=== PATIENT | female | born 1980 | race Caucasian/White ===

== ENCOUNTER 2022-02-23 06:55 | Inpatient (IN) | payer SELFPAY, OTHER ==
[2022-02-23] VITALS (20 sets, daily range): BP systolic 94–117; BP diastolic 51–78; PULSE 79–123; RESP 16–18; TEMP 36.2–36.9; O2SAT 95–100; BMI 26.5
[2022-02-23] MEDS: LACTATED RINGERS 500 ML 999 ML IV (07:06)
[2022-02-23 07:25] LABS: Absolute Lymphocyte Count 1.47 X10^3/uL (0.83-4.51); Absolute Neutrophil Count 8.3 X10^3/uL (2.0-7.7); Basophil# 0.04 X10^3/uL; Basophil% 0.4 % (0-1); Eosinophil# 0.03 X10^3/uL; Eosinophils% 0.3 % (0-5); Hematocrit 37.5 % (37-47); Hemoglobin 12.5 g/dL (12.0-15.0); Lymphocyte # 1.47 X10^3/ul (0.83-4.51); Mean Corp Hgb Conc 33.3 g/dL (32-36); Mean Corpuscular Hgb 32.3 pg (27.0-32.0); Mean Corpuscular Volume 96.9 fL (81-99); Mean Platelet Vol. 8.9 fl (6.2-12.0); Monocyte# 0.57 X10^3/uL; Monocyte% 5.4 % (0-10); NRBC Flagged by Analyzer 0 % (0-5); Neutrophil # 8.29 X10^3/uL (2.7-7.7); Neutrophil % 78.9 % (47-70); Platelet Count 247 K/mm3 (150-450); RBC Distribution Width CV 13.2 % (11.6-14.6); RBC Distribution Width SD 47.1 fl (35.1-43.9); Red Blood Count 3.87 M/mm3 (4.2-5.4); White Blood Count 10.5 K/mm3 (4.4-11.0)
[2022-02-23 07:42] LABS: Partial Thromboplast Time 24.9 Seconds (24.1-36.2); Prothrombin Time (Protime)PT. 12.7 SECONDS (11.7-14.9)
[2022-02-23 08:24] LABS: Rubella IgG Reactive (Nonreactive); Syphilis Antibodies Non-reactive
[2022-02-23] MEDS: Oxytocin 30 units/NS 500 ml 30 UNITS/500 ML IV.SOLN 167 UNITS IV (08:29)
[2022-02-23 08:41] LABS: HIV - WCH Non-Reactive (Nonreactive); Hepatitis B Surface Antigen Non-Reactive (Nonreactive); Hepatitis C Antibody Non-Reactive (Nonreactive)
--- NOTE | 2022-02-23 09:51 | OP.PCM_ITS ---
Problems Associated Problem List Diagnoses (1) labor in third trimester: (2) Premature rupture of membranes: (3) Elderly multigravida: (4) No care in current : (5) Placental abruption in third trimester: (6) Non-reassuring electronic monitoring tracing: Report of Operation Date of Procedure: 02/23/22 Pre-Operative Diagnosis: 1. 35-week intrauterine by dates only with nonreassuring heart tracing 2. premature rupture of membranes 3. Premature labor 4. Placental abruption 5. Inadequate care 6. Elderly multigravida 7. Oligohydramnios Post-Operative Diagnosis: Same with finding of small gestational age fetus with gross abnormalities Surgery/Procedure Performed:: Primary low transverse section Via Pfannenstiel Description of Surgical Findings:: Male infant in cephalic presentation with a very soft and relatively large head. Short limbs. Oligohydramnios. Surgeon: Kalli Lazaro user experience manager: Sue Kunz Type of Anesthesia: General/Regional Anesthesiologist: Renard Herrera Drains: Maurer catheter Estimated Blood Loss (mL): 300 mL Description of Procedure: In the operating room the patient was emergently prepped in the dorsal supine position with a leftward tilt and once general anesthesia was adequate a Pfannenstiel incision was made and a bladder blade and moist laparotomy sponges placed in the paracolic gutters. A transverse incision was made in the lower uterine segment and my hand was reached in 4 very soft squishy head and the rest of the was delivered with fundal pressure without difficulty. proportions were obviously abnormal. The cord was clamped and cut and the infant handed off to the waiting lead software qa engineer and nurses. IV Pitocin was given and the uterus contracted down and the placenta was delivered manually and the placenta cleared of clots and debris. The uterus contracted down well. The uterus was repaired in 2 layers using a running layer of #0 Vicryl and an imbricating layer of #1 Monocryl to obtain excellent hemostasis. The uterine adnexa were inspected and found to be normal and the paracolic gutters were cleared of clots and debris. The parietal peritoneum was repaired with a running layer of #3-0 Vicryl and the rectus muscles were inspected for hemostasis which was good. The fascia was closed with a running layer of #0 Vicryl and 2 segments and the subcutaneous tissue irrigated. Hemostasis was good. Interrupted sutures of #3-0 Vicryl were placed before the skin was closed with a subcuticular layer of #4-0 Vicryl and ABD dressing was applied. Complications None noted Admit VTE Documentation VTE Present on Admission: No VTE Mechan Device Prophylaxis: SCD's VTE Pharm Prophylaxis ordered?: No
--- NOTE | 2022-02-23 10:03 | PCM.HP.OB ---
HPI - General General Date of Admission: 02/23/22 Chief Complaint: contractions. HPI Narrative CRISTIN VILLALOBOS, is a 41 F who presents with contractions after a call from her inlayer silver Madonna Easley who called into labor and delivery. Apparently when she called the patient was having contractions but no rupture of membranes or bleeding. On their arrival per the history from the patient and her her membranes ruptured as they came out of the vehicle with several clots following approximately 7 cm in diameter. Maternal Data Information Final CHASITY: 04/02/22 Final CHASITY Source: LMP Gestational age: 37 Doctor Who Attended Delivery[facility] Allergy/AdvReac Type Severity Reaction Status Date / Time No Known Allergies Allergy Verified 02/23/22 07:22 no surgical history Social History (Updated 02/23/22 @ 10:[address] Kalli Lazaro MD) household members: family housing: house number of children: 4 Smoking Status: Never smoker substance use type: does not use History 9 Elective abortions 0 Hx Para 5 Spontaneous abortions 2 Hx # Term Pregnancies 4 Ectopic pregnancies 0 Hx # Pregnancies 1 Multiple births 0 # of living children 4 Addt'l History: Patient had one 35-week delivery at home which resulted in a stillbirth and of note was that the had very little bone structure to its head and dysmorphic features. All other deliveries were full-term and uneventful. NST FHR Rate Baby A Baseline: 140s Variability:: Moderate Accelerations:: 15 x 15 Decelerations:: Variable NST Reactive:: Appropriate for gestational age FHR Category:: Category I Uterine Activity:: Irregular. Assessment Assessment Detail: Initial heart rate was category 1 and in fact IV Pitocin was started for a few minutes in hopes of spontaneous delivery with a diagnosis of multiparity and an abruption with a cervix 5 cm dilated and a history of fast labors. Before she could even develop contractions the heart rate deteriorated with a prolonged bradycardia into the 80s not responding to fluids and positional changes and a decision was made for an emergency section. ROS ROS Narrative All negative Vital Signs Vital Signs Vital Signs: 02/23/22 07:09 02/23/22 07:09 02/23/22 07:14 Temperature Temperature Source Pulse Rate 121 H 110 H Respiratory Rate Respiratory Pattern Blood Pressure Blood Pressure Mean Blood Pressure Source Blood Pressure Position Blood Pressure Location Baseline BP Pulse Ox 99 Oxygen Delivery Method 02/23/22 07:14 02/23/22 07:19 02/23/22 07:19 Temperature Temperature Source Pulse Rate 118 H Respiratory Rate Respiratory Pattern Blood Pressure Blood Pressure Mean Blood Pressure Source Blood Pressure Position Blood Pressure Location Baseline BP Pulse Ox 99 99 Oxygen Delivery Method 02/23/22 07:24 02/23/22 07:24 02/23/22 08:30 Temperature 97.2 F L Temperature Source Temporal Pulse Rate 123 H 83 Respiratory Rate 16 Respiratory Pattern Normal Blood Pressure 105/72 Blood Pressure Mean 83 Blood Pressure Source Monitor Blood Pressure Position Semi-Fowlers Blood Pressure Location Left Arm Baseline BP 117/78 Pulse Ox 99 99 Oxygen Delivery Method Room Air 02/23/22 08:40 02/23/22 08:55 02/23/22 09:10 Temperature 97.2 F L 97.2 F L 98.0 F Temperature Source Temporal Temporal Temporal Pulse Rate 82 83 86 Respiratory Rate 16 16 16 Respiratory Pattern Blood Pressure 105/72 116/75 102/64 Blood Pressure Mean 83 88 76 Blood Pressure Source Monitor Monitor Monitor Blood Pressure Position Semi-Fowlers Semi-Fowlers Blood Pressure Location Left Arm Left Arm Baseline BP 117/78 117/78 117/78 Pulse Ox 95 98 100 Oxygen Delivery Method Room Air Room Air Room Air 02/23/22 09:25 02/23/22 09:40 Temperature 98.0 F 98.0 F Temperature Source Temporal Temporal Pulse Rate 79 85 Respiratory Rate 16 16 Respiratory Pattern Blood Pressure 104/67 94/58 L Blood Pressure Mean 79 70 Blood Pressure Source Monitor Monitor Blood Pressure Position Semi-Fowlers Semi-Fowlers Blood Pressure Location Left Arm Left Arm Baseline BP 117/78 117/78 Pulse Ox 100 100 Oxygen Delivery Method Room Air Room Air Weight Weight: 150 lb Body Mass Index (BMI) 26.5 Physical Exam Narrative Bedside scan was carried out confirming a fundal placenta and a single fetus in cephalic presentation and an absence of amniotic fluid. A search for a femur length to attempt to obtain some idea of gestational age was unsuccessful presumably due to the oligohydramnios. Of note was that the scalp appeared thin. Const alert, oriented x3 and no apparent distress General Appearance: cooperative, comfortable and well kempt Orientation / Consciousness: awake HEENT normocephalic Eyes PERRL and EOMs intact bilaterally General Eye: normal appearance of both eyes Neck full ROM General: normal visual inspection Lymph Lymphatic: no lymphadenopathy noted Chest inspection of chest normal Resp normal respiratory effort and normal air movement Effort and Inspection: able to speak in complete sentences Cardio Cardio Narrative: Exam deferred no CVA tenderness Speculum Exam - Cervix: cervical os open Manual OB Exam: estimated gestational size, presentation cephalic, dilated, effaced For and station high Uterus Palpation: uterus fundus soft Amniotic Fluid: bloody amniotic fluid and ROM+plus Extremity normal to inspection, no calf tenderness and no pedal edema Skin no rashes or lesions noted Neuro Speech: speech normal Psych mental status grossly normal Labs Labs Labs: Blood Type A POSITIVE Antibody Screen NEGATIVE Hct 37.5 % (37-47) Hgb 12.5 g/dL (12.0-15.0) Syphilis Total Ab Non-reactive Rubella IgG Antibody Reactive (Nonreactive) Hep Bs Antigen Non-Reactive (Nonreactive) HIV 1&2 Antibody Non-Reactive (Nonreactive) Patient had no labs drawn this Assessment & Plan (1) Non-reassuring electronic monitoring tracing: (2) Premature rupture of membranes: (3) labor in third trimester: COMMENT: Estimated gestational age of 35 weeks by maternal history only (4) Placental abruption in third trimester: (5) No care in current : (6) Elderly multigravida: PLAN: Plan Initial plan was to attempt vaginal delivery with labor augmentation however the heart rate deteriorated very significantly leading to a decision to perform an emergency section. Respiratory and the leather tanner were notified. Procedure Criteria Type of Procedure Procedure Type: Elective Elective Risks - COVID COVID Risk Discussion: The surgeon/proceduralist and patient have discussed in detail the risk of exposure to and/or potential harm posed by the COVID-19 virus with having a surgery/procedure at this time versus the risk of delaying the surgery/procedure. It is not possible to know either the risk of delaying the surgery or procedure or chance of getting an infection with perfect accuracy, but a joint decision was made between the patient and the surgeon/proceduralist to proceed at this time with the scheduled surgery/procedure as indicated on the consent form.
[2022-02-23] MEDS: Lactated Ringers 1,000 ML 250 ML IV (10:17)
[2022-02-23] MEDS: Ketorolac 15 MG/ML Vial IV (10:21)
--- NOTE | 2022-02-23 11:10 | CASEMGMT ---
Social Work Note SW spoke with RN, family is currently at [facility] and discussing next options for pt and . RN states to not see pt at this time, but to wait. SW to remain available. Carla Man DRYING TUNNEL OPERATOR, TABULAR TYPIST
--- NOTE | 2022-02-23 13:03 | CASEMGMT ---
Social Work Note SW in to speak with pt. MOB with multiple family members present in room. SW offered support to MOB. MOB states that she is doing ok. SW offered to provide MOB with counseling resources or additional information and MOB denied. SW informed MOB to let this worker know if additional needs come up. MOB states understanding. Carla Man MEDICAL ONCOLOGY PHYSICIAN, PLUG GROWER
[2022-02-23] MEDS: Acetaminophen 325 MG Tablet 650 MG PO ×2 (14:39→20:59)
[2022-02-23] MEDS: Ibuprofen 600 MG Tablet PO ×2 (16:30→22:23)
[2022-02-24] VITALS: BP 101/72; PULSE 97; RESP 18; TEMP 37; O2SAT 98
[2022-02-24] MEDS: Acetaminophen 325 MG Tablet 650 MG PO ×2 (02:48→08:47)
[2022-02-24 03:05] VITALS: BP 94/53; PULSE 78; RESP 16; TEMP 36.3; O2SAT 99
[2022-02-24] MEDS: Ibuprofen 600 MG Tablet PO (05:32)
[2022-02-24 05:45] LABS: Hematocrit 26.3 % (37-47); Hemoglobin 8.7 g/dL (12.0-15.0); Mean Corp Hgb Conc 33.1 g/dL (32-36); Mean Corpuscular Volume 99.6 fL (81-99); Mean Platelet Vol. 8.5 fl (6.2-12.0); Platelet Count 208 K/mm3 (150-450); RBC Distribution Width CV 13.3 % (11.6-14.6); RBC Distribution Width SD 48.2 fl (35.1-43.9); Red Blood Count 2.64 M/mm3 (4.2-5.4); White Blood Count 16.1 K/mm3 (4.4-11.0)
--- NOTE | 2022-02-24 08:05 | PN.OBGYN_ITS ---
Subjective Subjective Good pain control. Voiding. No flatus yet. Objective Data Objective Data Looks PALE Vital Signs: Vital Signs Temp Pulse Resp BP Pulse Ox O2 Del Method 97.4 F L 78 16 94/53 L 99 Room Air 02/24/22 03:05 02/24/22 03:05 02/24/22 03:05 02/24/22 03:05 02/24/22 03:05 02/24/22 03:05 Oxygen Delivery Method Room Air Weight: 150 lb Body Mass Index (BMI) 26.5 Intake & Output: Intake and Output for Last 24 Hours 02/22/22 02/23/22 02/24/22 23:59 23:59 23:59 Intake Total 2705 / 2705 Output Total 1300 / 1300 Balance 1405 / 1405 Lab / Micro Data Attestation: I reviewed the patient's lab results. Result Diagrams: 02/24/22 05:40 Labs: Laboratory Results - last 24 hr 02/23/22 07:00: Syphilis Total Ab Non-reactive, Rubella IgG Antibody Reactive 02/23/22 07:00: Blood Type A POSITIVE, Antibody Screen NEGATIVE 02/23/22 07:00: Hep Bs Antigen Non-Reactive, Hepatitis C Antibody Non-Reactive, HIV 1&2 Antibody Non-Reactive 02/24/22 05:40: WBC 16.1 H, RBC 2.64 L, Hgb 8.7 L, Hct 26.3 L, MCV 99.6 H, MCH 33.0 H, MCHC 33.1, RDW Std Deviation 48.2 H, RDW Coeff of Yakov 13.3, Plt Count 208, MPV 8.5 ROS ROS Narrative Walking without difficulty, lochia small. Physical Exam Const alert and oriented x3 Constitutional Narrative: Pallor Resp normal respiratory effort and clear to auscultation bilaterally Cardio regular rate and regular rhythm GI normal to inspection, nondistended, normoactive bowel sounds and soft to palpation GI Narrative: Dressing clean and dry no CVA tenderness Extremity no calf tenderness and no pedal edema Assessment & Plan (1) Post-operative state: COMMENT: post -emergency for fetus with lethal anomalies. Diana ring discharge this am. Discussed self care at home/burial service, use wheel chair. Expressed desire to follow-up with Dr. Elaine. Interested in genetic testing, to be arranged PP. Wound care. Pain medication use. Call to schedule in 10-14d (2) Post-operative hemoglobin drop: COMMENT: Couple likely underestimated pre-arrival blood loss - initial Hb was 12 and 400ml operative blood loss. Emphasized importance of Fe supplementation and rest at home. PLAN: Plan Discharge
--- NOTE | 2022-02-24 08:13 | DCINST_ITS ---
Discharge Instructions Diet Discharge Diet: No restrictions Activity Discharge Activity: May Shower May resume sexual activity in: 6-8 weeks Dressing / Incision Call your doctor if your incision/area has: - Call your doctor if you observe: Fever of 101 or Higher, Coldness, Increased Pain, Inability to urinate, Using more than 1 pad per hour, Calf discomfort and Uncontrolled pain Suture Line Care: Avoid Pulling/Pushing Change Dressing in: 3 days Follow Up Care Please Follow Up With: Latrice Elaine MD When: 10-14 days, call for appointment. Test Results: Test results from this visit will be discussed in further detail at your follow- up appointment, if applicable. Discharge Plan Admission Admit Date/Time: 02/23/22 06:55 Primary Reason for Your Visit: labor Attending Provider: Kalli Lazaro Primary Care Provider: Care Physician,No Primary Discharge Orders/Prescriptions Referrals / Follow Up: Care Physician,No Primary [Primary Care Provider] -
[2022-02-24 08:49] VITALS: BP 98/57; PULSE 67; RESP 16; TEMP 36.8; O2SAT 97
--- NOTE | 2022-02-24 09:05 | NURSING ---
Spoke to the pt and her regarding following up with genetic testing and we also discussed following up with a phone call to see how they are doing.
--- NOTE | 2022-03-08 18:02 | NURSING ---
Talked with Rebekah on the phone this evening to see how she is doing, both physically and emotionally. Reports things go better if she has a nap during the day. Pt. reports that she is eating and sleeping ok. Reports that her moods are doing ok, but that she is finding herself in different stages of grief, working through those things. Encouraged that grief is not a course that is completed once you pass each milestone, but that you can [place] back to different feelings and that it is ok to allow self to feel the feelings and give herself lucinda. Reports that she was able to follow-up with Dr. Elaine this week. Pt's concerned over paying bill, and gave pt. number for Anais Shane to talk to about that. Pt. reports that she has been terrified of hospitals, but you changed my mind, and I would definitely come there again if I needed a hospital. Discussed talking with pt. around the 1-month anniversary, and hope to have a date for when to expect pictures if they are not yet available. Pt. looking forward to having pictures, very thankful for [facility]. Also encouraged to reach out to [facility] for support groups if she would like. Pt. verbalizes understanding, appears to be agreeable to this. Denies other needs or questions at this time. Encouraged to call in if any questions or needs arise.
--- NOTE | 2022-05-01 12:33 | NURSING ---
Talked with pt. today about getting edited photos of Joel. Welch planning to come get them, planning for next sunday, 05/09. Denies other needs at this time. Call disconnected, and called back to leave message with directions on how to get to unit for pics, and number to call back if needs anything.
== END 2022-02-24 11:08 | disposition home or self-care (01) | DRG 788 ==
PROVIDERS: Admitting Provider Obstetrics & Gynecology Gynecology; Visit Provider Obstetrics & Gynecology Gynecology
DX: O60.14X0 Preterm labor third trimester with preterm delivery third trimester, not applicable or unspecified (principal); O36.5930 Maternal care for other known or suspected poor fetal growth, third trimester, not applicable or unspecified; O35.8XX0 Maternal care for other (suspected) fetal abnormality and damage, not applicable or unspecified; O76 Abnormality in fetal heart rate and rhythm complicating labor and delivery; Z37.0 Single live birth; Z3A.35 35 weeks gestation of pregnancy
CPT/HCPCS: 59050; 76815; 85025; 85027; 85610; 85730; 86703; 86762; 86780; 86803; 86850; 86900; 86901; 87340; 99218; J7120; G0378; J2405; J3490

== ENCOUNTER → 2022-03-06 | Outpatient (CLI) | payer SELFPAY ==
[2022-03-06 12:29] LABS: Absolute Lymphocyte Count 1.88 X10^3/uL (0.83-4.51); Absolute Neutrophil Count 7.3 X10^3/uL (2.0-7.7); Eosinophil# 0.04 X10^3/uL; Eosinophils% 0.4 % (0-5); Hematocrit 35.8 % (37-47); Hemoglobin 11.8 g/dL (12.0-15.0); Lymphocyte # 1.88 X10^3/ul (0.83-4.51); Lymphocyte % 19.1 % (19-41); Mean Corpuscular Hgb 33.1 pg (27.0-32.0); Mean Corpuscular Volume 100.3 fL (81-99); Mean Platelet Vol. 8.4 fl (6.2-12.0); Monocyte# 0.48 X10^3/uL; Monocyte% 4.9 % (0-10); NRBC Flagged by Analyzer 0 % (0-5); Neutrophil # 7.28 X10^3/uL (2.7-7.7); Neutrophil % 74.2 % (47-70); Platelet Count 467 K/mm3 (150-450); RBC Distribution Width CV 12.7 % (11.6-14.6); Red Blood Count 3.57 M/mm3 (4.2-5.4); White Blood Count 9.8 K/mm3 (4.4-11.0)
[2022-03-09 01:07] LABS: Dilute Russell Viper Venom 35.9 sec (0.0-47.0); PTT-LA 30.8 sec (0.0-51.9); Thrombin Time 17.9 sec (0.0-23.0); dPT Confirm Ratio 1.15 Ratio (0.00-1.34)
[2022-03-09 12:49] LABS: Anti-Cardiolipin Ab, IgA, Qn < 9 APL U/mL (0-11); Anti-Cardiolipin Ab, IgG, Qn < 9 GPL U/mL (0-14); Anti-Cardiolipin Ab, IgM, Qn < 9 MPL U/mL (0-12); Beta-2-Glycoprotein I IgG <9 (0-20)
[2022-03-09 12:50] LABS: Beta-2-Glycoprotein I IgA <9 (0-25); Beta-2-Glycoprotein I IgM <9 (0-32); Interpretation Comment: (.)
== END | disposition home or self-care (01) ==
LOC: LAB 12:08
PROVIDERS: Visit Provider Obstetrics & Gynecology
DX: N96 Recurrent pregnancy loss (principal); Z87.59 Personal history of other complications of pregnancy, childbirth and the puerperium
CPT/HCPCS: 36415; 85025; 86146; 86147